=== PATIENT | male | born 1985 | race Caucasian/White ===

== ENCOUNTER 2021-03-06 18:21 | Emergency (ER) | payer OTHER ==
[~2021-03-06] VITALS: Ht 180.3 cm; Wt 79.4 kg
[2021-03-06 18:25] VITALS: BP_SYST 149
--- NOTE | 2021-03-06 18:25 | NUR ---
PT TO BED 5 FOR EVALUATION
--- NOTE | 2021-03-06 18:30 | NUR ---
PT AAO AND AMBULATORY REPORTING WORSENING LEFT ARM ABSCESS FOR THE PAST 2 DAYS. PT STATES THAT HE IS UNSURE OF HOW HIS WOUND DEVELOPED AND REPORTS PAIN 10/10 ON PAIN SCALE.
--- NOTE | 2021-03-06 19:00 | NUR ---
ER Dr. White at bedside examining patient.
--- NOTE | 2021-03-06 19:02 | NUR ---
Care of patient endorsed to TIMOTEO [place]. Pt currently resting in bed, no distress noted.
--- NOTE | 2021-03-06 19:03 | NUR ---
Received endorsement from day shift, AAOX4, breathing spontaneously at room air, not in distress noted. With left arm redness and swelling noted, Vital signs stable
[2021-03-06] MEDS ORDERED: NACL 0.9% 1,000 ML IV ONE (19:15)
[2021-03-06] MEDS ORDERED: VANCOMYCIN HCL 1,000 MG in D5W 250 ML IV ONE (19:15)
--- NOTE | 2021-03-06 19:20 | NUR ---
obstetrics technician at bedside, blood drawn
[2021-03-06 19:23] LABS: BASOPHILS # (AUTO) 0.1 K/uL (0.0-0.2); BASOPHILS % (AUTO) 0.5 % (0.0-2.0); EOSINOPHILS # (AUTO) 0.1 K/uL (0.0-0.4); HEMATOCRIT 40.7 % (36-54); HEMOGLOBIN 13.9 g/dL (14.0-18.0); LYMPHOCYTES # (AUTO) 3.9 K/uL (1.0-5.5); LYMPHOCYTES % (AUTO) 29.7 % (20.5-51.5); MEAN CORPUSCULAR HEMOGLOBIN 29 pg (27-31); MEAN CORPUSCULAR HGB CONC 34 % (32-36); MEAN CORPUSCULAR VOLUME 84 fL (79.0-98.0); MONOCYTES # (AUTO) 0.9 K/uL (0.0-1.0); MONOCYTES % (AUTO) 6.5 % (1.7-9.3); NEUTROPHILS # (AUTO) 8.1 K/uL (1.8-7.7); NEUTROPHILS % (AUTO) 62.3 % (40.0-70.0); PLATELET COUNT (AUTO) 244 K/uL (130-430); RED BLOOD CELL COUNT(AUTO) 4.84 MIL/uL (4.2-6.2); RED CELL DISTRIBUTION WIDTH 13.2 % (9.0-15.0); WHITE BLOOD COUNT (AUTO) 13.1 K/uL (4.8-10.8)
[2021-03-06] MEDS ORDERED: VANCOMYCIN HCL 1000 MG/VIAL IV ONE (19:24)
--- NOTE | 2021-03-06 19:25 | NUR ---
# 20 gauge angiocath placed to RIGHT FOREARM. Use of asceptic technique. Opsite placed over site. Blood return noted. Flushed with 10 cc of normal saline. No evidence of infiltration noted. Patient tolerated well.
[2021-03-06 19:48] LABS: CALCIUM 8.6 mg/dL (8.4-11.0); CREATININE 1.1 mg/dL (0.55-1.30); POTASSIUM 3.6 mmol/L (3.5-5.1)
[2021-03-06 19:51] LABS: BILIRUBIN,URINE NEGATIVE (NEGATIVE); BLOOD, URINE NEGATIVE (NEGATIVE); CLARITY/URINE CLEAR (CLEAR); COLOR,URINE YELLOW (YELLOW); GLUCOSE,URINE NEGATIVE (NEGATIVE); KETONES,URINE NEGATIVE (NEGATIVE); LEUKOCYTE ESTERASE ,URINE NEGATIVE (NEGATIVE); NITRITE, URINE NEGATIVE (NEGATIVE); PROTEIN URINE NEGATIVE (NEGATIVE); UROBILINOGEN,URINE 0.2 (0.2-1.0)
[2021-03-06 19:54] LABS: ALBUMIN 3.4 g/dL (3.4-4.8); TOTAL BILIRUBIN 0.5 mg/dL (0.0-1.0)
--- NOTE | 2021-03-06 20:31 | NUR ---
To toilet ambulatory, voided freely as claimed.
[2021-03-06] MEDS ORDERED: CLINDAMYCIN 600 MG in D5W 50 ML IV ONE (21:30)
--- NOTE | 2021-03-06 21:30 | NUR ---
Re-assesed by Dr. White, for possibe discharge after 2nd antibiotic
[2021-03-06] MEDS ORDERED: CLINDAMYCIN 600 mg/50mL D5W 50 ML IV ONE (21:45)
[2021-03-06] MEDS ORDERED: CLIN300C12 PO (22:33)
[2021-03-06 22:40] VITALS: BP_SYST 128
--- NOTE | 2021-03-06 22:40 | NUR ---
Patient given written and verbal discharge instructions and verbalizes understanding. ER MD discussed with patient the results and treatment provided. Patient in stable condition. ID arm band removed. IV catheter removed intact and dressing applied, no active bleeding. Rx of Clindamycin given. Patient educated on pain management and to follow up with PMD. Pain Scale 0/10. Opportunity for questions provided and answered. Medication side effect fact sheet provided.
== END 2021-03-06 22:40 | disposition home or self-care (01) ==
LOC: SED 18:21
DX: L03.114 Cellulitis of left upper limb (principal); F11.90 Opioid use, unspecified, uncomplicated; F12.90 Cannabis use, unspecified, uncomplicated
CPT/HCPCS: 36415; 80053; 81003; 83605; 85025; 87040; 96365; 96366; 96367; 99285; J3370; J3490; J7030

== ENCOUNTER 2021-08-30 21:22 | Emergency (ER) | payer SELFPAY ==
[~2021-08-30] VITALS: Ht 180.3 cm; Wt 77.1 kg
[~2021-08-30 21:22] MED LIST: CLIN300C12 PO
[2021-08-30 21:25] VITALS: BP_SYST 141
--- NOTE | 2021-08-30 21:25 | NUR ---
[facility] Side rails up. Report given to Heather MAHMOOD.
--- NOTE | 2021-08-30 21:27 | NUR ---
ER Dr. Adler at bedside examining patient.
[2021-08-30] MEDS ORDERED: BUPRENORPHINE HCL/NALOXONE HCL 2-0.5 MG 1 EACH TAB.SUBL SL ONE (21:30)
[2021-08-30] MEDS ORDERED: cloNIDine HCL 0.1 MG TABLET PO ONE (21:30)
[2021-08-30] MEDS ORDERED: ONDANSETRON 4 MG ODT TAB PO ONE (21:30)
--- NOTE | 2021-08-30 21:40 | NUR ---
Assumed total care of patient. Patient AAO x4 BIB law enforcement for medical clearance for OK to book. Patient c/o nausea, body aches, abdominal pain, and dizzniess. Patient reports he used heroin about 24 hours ago. Patient VSS, breathing even and unlabored, no signs of acute distress noted. Patient accompanied by two deputy officers and placed in handcuffs.
--- NOTE | 2021-08-30 21:56 | NUR ---
Patient medicated per MD orders. Patient tolerated well.
[2021-08-30] MEDS ORDERED: cloNIDine HCL 0.1 MG TABLET ONE (21:57)
[2021-08-30 22:15] VITALS: BP_SYST 122
--- NOTE | 2021-08-30 22:15 | NUR ---
Patient and Officer Angella given written and verbal discharge instructions and verbalizes understanding. ER MD discussed with patient the results and treatment provided. Patient in stable condition. ID arm band removed. No IV No Rx given. Patient educated on pain management and to follow up with PMD. Pain Scale 0/10. Opportunity for questions provided and answered. Medication side effect fact sheet provided.
== END 2021-08-30 22:15 ==
LOC: SED 21:22
DX: F11.23 Opioid dependence with withdrawal (principal); Z79.899 Other long term (current) drug therapy
CPT/HCPCS: 99284; Q0162